=== PATIENT | male | born 1990 | race Caucasian/White ===

== ENCOUNTER 2022-08-21 19:37 | Emergency (ER) | payer MEDICAID ==
[~2022-08-21] VITALS: Ht 162.6 cm; Wt 63.5 kg
--- NOTE | 2022-08-21 20:45 | NUR ---
BIBS FOR C/O ABD PAIN X 5 DAYS. PATIENT IS [place]ORE[place] SPEAKING. ABLE TO MAKE NEEDS KNOWN. PAIN SCALE OF 7/10. PLACED COMFORTABLY IN BED. VITALS CHECKED.
[2022-08-21] MEDS ORDERED: IV NS 0.9% 1,000 ML BAG IV ONE (21:00)
[2022-08-21] MEDS ORDERED: KETOROLAC TROMETHAMINE INJ 30 MG/ML VIAL IV ONE (21:00)
[2022-08-21] MEDS ORDERED: KETOROLAC TROMETHAMINE 15 MG/ML VIAL ONE (21:02)
--- NOTE | 2022-08-21 21:04 | NUR ---
CRYS SHERWOOD AT BEDSIDE
--- NOTE | 2022-08-21 21:15 | NUR ---
IV CANNULA G20 INSERTED ON LEFT AC. BLOOD DRAWN AND SENT TO LAB
--- NOTE | 2022-08-21 21:25 | NUR ---
BROUGHT TO CT DEPT
[2022-08-21 21:39] LABS: BASOPHILS # (AUTO) 0.1 K/uL (0.0-0.2); BASOPHILS % (AUTO) 0.8 % (0.0-2.0); HEMATOCRIT 46 % (39-51); HEMOGLOBIN 15.4 g/dL (13.5-17.5); LYMPHOCYTES # (AUTO) 3.5 K/uL (0.8-4.8); MEAN CORPUSCULAR HGB CONC 34 g/dl (31.0-36.0); MEAN CORPUSCULAR VOLUME 89 fL (80-96); MONOCYTES # (AUTO) 0.4 K/uL (0.1-1.30); MONOCYTES % (AUTO) 5.4 % (2.0-12.0); NEUTROPHILS # (AUTO) 2.2 K/uL (1.8-8.9); NEUTROPHILS % (AUTO) 32.8 % (43.0-81.0); PLATELET COUNT (AUTO) 235 K/uL (150-450); RED BLOOD CELL COUNT(AUTO) 5.13 MIL/uL (4.5-6.0); WHITE BLOOD COUNT (AUTO) 6.6 K/uL (4.3-11.0)
[2022-08-21 21:58] LABS: ALBUMIN 4.1 g/dL (3.4-5.0); BILIRUBIN,DIRECT 0.1 mg/dL (0.0-0.2); BILIRUBIN,TOTAL 0.5 mg/dL (0.2-1.0); CALCIUM, SERUM 9.3 mg/dL (8.5-10.1); CREATININE 1.1 mg/dL (0.6-1.3); POTASSIUM 4.4 mmol/L (3.5-5.1); TOTAL PROTEIN, SERUM 8.3 g/dL (6.4-8.2)
--- NOTE | 2022-08-21 22:11 | NUR ---
GLUCOSE 647
[2022-08-21] MEDS ORDERED: INSULIN REGULAR, HUMAN 100 UNIT/ML 10 ML VIAL SQ ONE (22:30)
[2022-08-21] MEDS ORDERED: POTASSIUM CHLORIDE 20 MEQ TAB.PRT.SR PO ONE ×2 (22:30→22:32)
[2022-08-21] MEDS ORDERED: IV NS 0.9% 1,000 ML IV ONE (22:30)
[2022-08-21] MEDS ORDERED: INSULIN REGULAR, HUMAN 100 UNIT/ML 10 ML VIAL ONE (22:32)
--- NOTE | 2022-08-21 23:09 | NUR ---
URINE SAMPLE SENT TO LAB
[2022-08-22] MEDS ORDERED: METF-440 PO (00:01)
[2022-08-22 00:17] LABS: BILIRUBIN,URINE NEGATIVE (NEGATIVE); COLOR,URINE YELLOW (YELLOW); LEUKOCYTE ESTERASE ,URINE NEGATIVE (NEGATIVE); NITRITE, URINE NEGATIVE (NEGATIVE); PH,URINE 6.5 (5.0-8.0); PROTEIN,URINE NEGATIVE (NEGATIVE); UGLUCOSE 3+ mg/dL (NEGATIVE); UROBILINOGEN,URINE 0.2 EU/dL (0.2)
[2022-08-22 00:31] LABS: BACTERIA,URINE Rare /HPF (None Seen); RBC,URINE 0-2 /HPF (0-2); SQUAMOUS EPITHELIAL CELL,UR Few /HPF (None Seen); WBC,URINE 0-2 /HPF (0-3)
--- NOTE | 2022-08-22 00:43 | NUR ---
IV CANNULA REMOVED.
--- NOTE | 2022-08-22 00:44 | NUR ---
Patient discharged to home in stable condition. Written and verbal after care instructions given. Patient verbalizes understanding of instruction.
[2022-08-22 00:49] VITALS: BP 141/98
== END 2022-08-22 01:00 | disposition home or self-care (01) ==
LOC: ER 19:40
DX: R73.9 Hyperglycemia, unspecified (principal)
CPT/HCPCS: 99284; 74176; 96374; 76705; 96361; 96372; 85025; 80048; 83690; 80076; 81001; 36415; 82962; J1815; J1885

== ENCOUNTER 2023-08-08 12:31 | Emergency (ER) | payer MEDICAID, OTHER ==
[~2023-08-08] VITALS: Ht 162.6 cm; Wt 72.6 kg
[~2023-08-08 12:31] MED LIST: METF-440 PO
[2023-08-08 12:45] VITALS: BP 123/86; TEMP 98.1; O2SAT 100
[2023-08-08] MEDS ORDERED: FLUT9.9S NS (13:07)
[2023-08-08] MEDS ORDERED: LORA10TA7 PO (13:07)
== END 2023-08-08 13:40 | disposition home or self-care (01) ==
LOC: ER 12:42
DX: J32.9 Chronic sinusitis, unspecified (principal); E11.9 Type 2 diabetes mellitus without complications; Z79.84 Long term (current) use of oral hypoglycemic drugs

== ENCOUNTER 2023-11-05 16:42 | Emergency (ER) | payer MEDICAID, OTHER ==
[~2023-11-05] VITALS: Ht 162.6 cm; Wt 60.8 kg
[~2023-11-05 16:42] MED LIST changes: +FLUT9.9S NS; +LORA10TA7 PO
[2023-11-05] MEDS: IV NS 0.9% 1,000 ML BAG IV ONE (18:35)
[2023-11-05] MEDS: ACETAMINOPHEN ES 500 MG TABLET PO ONE (18:37)
[2023-11-05] MEDS ORDERED: MORPHINE SULFATE INJ 2 MG/ML DISP.SYRIN ONE (18:39)
[2023-11-05] MEDS: MORPHINE SULFATE INJ 2 MG/ML DISP.SYRIN IV ONE (18:40)
[2023-11-05] MEDS ORDERED: ACETAMINOPHEN ES 500 MG TABLET ONE (18:43)
[2023-11-05 19:21] LABS: BASOPHILS # (AUTO) 0.1 K/uL (0.0-0.2); BASOPHILS % (AUTO) 0.8 % (0.0-2.0); EOSINOPHILS # (AUTO) 2.2 K/uL (0.0-0.7); EOSINOPHILS % (AUTO) 21.7 % (0.0-6.0); HEMATOCRIT 45 % (39-51); HEMOGLOBIN 15.6 g/dL (13.5-17.5); LYMPHOCYTES # (AUTO) 3.6 K/uL (0.8-4.8); LYMPHOCYTES % (AUTO) 36.1 % (20.0-44.0); MEAN CORPUSCULAR HEMOGLOBIN 31 PG (26.0-33.0); MEAN CORPUSCULAR HGB CONC 35 g/dl (31.0-36.0); MEAN CORPUSCULAR VOLUME 89 fL (80-96); MONOCYTES # (AUTO) 0.5 K/uL (0.1-1.30); MONOCYTES % (AUTO) 5.5 % (2.0-12.0); NEUTROPHILS # (AUTO) 3.6 K/uL (1.8-8.9); NEUTROPHILS % (AUTO) 35.9 % (43.0-81.0); PLATELET COUNT (AUTO) 251 K/uL (150-450); RED BLOOD CELL COUNT(AUTO) 5.02 MIL/uL (4.5-6.0); RED CELL DISTRIBUTION WIDTH 12.9 % (11.5-15.0)
[2023-11-05 19:34] LABS: ALBUMIN 3.8 g/dL (3.4-5.0); BILIRUBIN,TOTAL 0.5 mg/dL (0.2-1.0); CALCIUM, SERUM 9.2 mg/dL (8.5-10.1); CREATININE 0.6 mg/dL (0.6-1.3); POTASSIUM 3.8 mmol/L (3.5-5.1)
[2023-11-05] MEDS ORDERED: HYDR-3976 GT (20:06)
[2023-11-05] MEDS ORDERED: AMOX-430 PO (20:06)
[2023-11-05] MEDS ORDERED: ACET325C7 PO (20:06)
[2023-11-05] MEDS ORDERED: IBUP-1955 PO (20:06)
[2023-11-05] MEDS ORDERED: METF-440 PO (20:06)
[2023-11-05] MEDS ORDERED: KETOROLAC TROMETHAMINE 15 MG/ML VIAL ONE (20:24)
[2023-11-05] MEDS: KETOROLAC TROMETHAMINE 15 MG/ML VIAL IV ONE (20:25)
[2023-11-05] MEDS ORDERED: PIPERACI/TAZO 3.375GM/D5W 50ML PB IV ONE (20:25)
[2023-11-05] MEDS: PIPERACILLIN /TAZOBACTAM 3.375 G in IV D5W 50 ML IV ONE (20:26)
[2023-11-05 20:48] VITALS: BP 132/84; TEMP 98; O2SAT 100
[2023-11-05 20:48] LABS: BAND % (MANUAL) 2 % (0.0-5.0); EOSINOPHILS % (MANUAL) 19 % (0-4); LYMPHOCYTES % (MANUAL) 31 % (16-48); MONOCYTES % (MANUAL) 3 % (0-11.0); NEUTROPHILS % (MANUAL) 45 (42-76); PLATELET ESTIMATE ADEQUATE
== END 2023-11-05 20:48 | disposition home or self-care (01) ==
LOC: ER 16:46
DX: K04.7 Periapical abscess without sinus (principal); E11.65 Type 2 diabetes mellitus with hyperglycemia; Z79.84 Long term (current) use of oral hypoglycemic drugs; Z79.899 Other long term (current) drug therapy
CPT/HCPCS: 99284; 96365; 96375; 96361; 85025; 80048; 80076; 36415; 85007; J2543 ×2; J7060; J7030; J2270; J1885

== ENCOUNTER 2024-05-14 20:20 | Emergency (ER) | payer MEDICAID, OTHER ==
[~2024-05-14] VITALS: Ht 152.4 cm; Wt 62.6 kg
[~2024-05-14 20:20] MED LIST changes: +ACET325C7 PO; +AMOX-430 PO; +HYDR-3976 GT; +IBUP-1955 PO
--- NOTE | 2024-05-14 21:03 | NUR ---
BIBSELF FROM HOME C/O R 5TH DIGIT PAIN & INJURY 2 WKS AGO. "30LB RICK FELL ON HAND" PT A/OX4. TOLERATING R/A WELL WITH NO RESP DISTRESS. SAFETY MEASURES IN PLACE.
[2024-05-14] MEDS ORDERED: IBUPROFEN 400 MG TABLET ONE (21:42)
[2024-05-14] MEDS: IBUPROFEN 400 MG TABLET PO ONE (21:43)
[2024-05-14] MEDS ORDERED: IBUP-1957 PO (21:46)
--- NOTE | 2024-05-14 22:31 | NUR ---
Patient discharged to home in stable condition. Written and verbal after care instructions given. Patient verbalizes understanding of instruction.
[2024-05-14 22:55] VITALS: BP 124/80; TEMP 98.1; O2SAT 99
== END 2024-05-14 22:55 | disposition home or self-care (01) ==
LOC: ER 20:22
DX: S62.396A Other fracture of fifth metacarpal bone, right hand, initial encounter for closed fracture (principal); E11.9 Type 2 diabetes mellitus without complications; W20.8XXA Other cause of strike by thrown, projected or falling object, initial encounter; Y93.89 Activity, other specified; Y92.89 Other specified places as the place of occurrence of the external cause; Y99.8 Other external cause status
CPT/HCPCS: 73140-TC